=== PATIENT | male | born 1990 | race African-American/Black ===

== ENCOUNTER 2018-10-22 22:36 | Emergency (ER) | payer BC ==
[~2018-10-22] VITALS: Ht 160 cm; Wt 60.0 kg
[2018-10-23 00:10] VITALS: BP 120/74
== END 2018-10-23 00:09 | disposition home or self-care (01) ==
LOC: ER 22:36
DX: Z43.3 Encounter for attention to colostomy (principal); F17.200 Nicotine dependence, unspecified, uncomplicated
CPT/HCPCS: 99284

== ENCOUNTER 2018-10-23 15:12 | Emergency (ER) | payer BC ==
[~2018-10-23] VITALS: Ht 160 cm; Wt 65.9 kg
[2018-10-23] MEDS ORDERED: IBUPROFEN 600MG TABLET PO STA (18:26)
[2018-10-23 18:59] LABS: BASOPHILS % 0.8 % (0.0-2.0); EOSINOPHILS % 2.5 % (0.0-5.0); HEMATOCRIT. 40.1 % (42.0-52.0); HEMOGLOBIN. 13.3 g/dL (14.0-18.0); LYMPHOCYTES % 24.3 % (20.0-50.0); MEAN CORPUSCULAR HEMOGLOBIN 29.4 pg (28.0-32.0); MEAN CORPUSCULAR VOLUME 88.4 fL (80.0-94.0); MONOCYTES % 10.9 % (2.0-8.0); NEUTROPHILS % 61.5 % (40.0-76.0); PLATELET 210 x1000/uL (130-400); RED BLOOD CELL COUNT 4.54 mill/uL (4.7-6.1); RED CELL DISTRIBUTION WIDTH 16.6 % (11.6-14.6)
[2018-10-23 19:04] LABS: CHLORIDE 105 mEq/L (98-107)
[2018-10-23 21:21] VITALS: BP 102/61
== END 2018-10-23 21:25 | disposition home or self-care (01) ==
LOC: ER 18:37
DX: R10.32 Left lower quadrant pain (principal); F17.200 Nicotine dependence, unspecified, uncomplicated; Z93.3 Colostomy status
CPT/HCPCS: 36415; 74176; 99284